=== PATIENT | male | born 1980 | race Caucasian/White ===

== ENCOUNTER 2016-08-23 11:13 | Emergency (ER) | payer BC ==
--- NOTE | 2016-08-23 12:09 | Emergency Department Record ---
History of Present Illness - General Chief Complaint: Abdominal Pain Stated Complaint: ABD DISCOMFORT/BLOOD IN STOOL Time Seen by Provider: 08/23/16 12:08 Source: Patient Mode of Arrival: Ambulatory Limitations: No limitations - History of Present Illness Initial Comments: The patient is here due to a 2 day hx of sharp lower abdominal pain. The onset was after twisting at work and feeling a possible pulled muscle in his lower abdomen. The pain does return with certain movements and bending. Today the patient had a BM and possibly had some bright red blood in the bowl. Due to that he decided to come to the ER. He denies any dysuria, nausea, vomiting, fever, or diarrhea. His appetite has been normal and he denies any hx of similar issues. MD Complaint: Abdominal pain Onset/Timin -: Days(s) Location: Suprapubic Radiation: None Migration to: No migration Severity: Mild Consistency: Constant Improves With: Nothing Associated Symptoms: Denies other symptoms - Related Data Previous Rx's Medication Instructions Recorded Ciprofloxacin HCl [Cipro] 500 mg PO Q12HR #14 tablet 08/23/16 Metronidazole [Flagyl] 500 mg PO TID #21 tablet 08/23/16 Naproxen [Naprosyn] 500 mg PO BID #14 tablet. 08/23/16 Allergies Allergy/AdvReac Type Severity Reaction Status Date / Time No Known Drug Allergies Allergy Unverified 07/09/16 09:59 Travel Screening - Travel/Exposure Within Last 30 Days Have you traveled within the last 30 days?: No Review of Systems Constitutional: Denies: Chills, Fever Eyes: Denies: Eye discharge ENT: Denies: Congestion Respiratory: Denies: Cough, Dyspnea Past Medical History - SOCIAL HISTORY Smoking Status: Former smoker Alcohol Use: None Drug Use: None - RESPIRATORY Hx Respiratory Disorders: Yes Hx Bronchitis: Yes Hx Pneumonia: Yes - CARDIOVASCULAR Hx Cardio Disorders: No - NEURO Hx Neuro Disorders: Yes Hx Dizziness: Yes - GI Hx GI Disorders: Yes Hx Reflux: Yes - Hx Genitourinary Disorders: No - ENDOCRINE Hx Endocrine Disorders: No Hx Diabetes: No Hx Thyroid Disease: No - MUSCULOSKELETAL Hx Musculoskeletal Disorders: Yes Comment:: Bain Kyphosis and Scoliosis - PSYCH Hx Psych Problems: No - HEMATOLOGY/ONCOLOGY Hx Hematology/Oncology Disorders: No Family Medical History Any Significant Family History?: Yes Hx Diabetes: Father, Grandparents *Diabetes Comment: both paternal grandparents. Maternal grandfather Hx HTN: Brother/Sister Hx Kidney Disease: Brother/Sister Physical Exam - General General Appearance: Alert, Oriented x3, Cooperative, No acute distress - Head Head exam: Atraumatic, Normocephalic, Normal inspection - Eye Eye exam: Normal appearance, PERRL - Neck Neck exam: Normal inspection, Full ROM. negative: Tenderness - Respiratory Respiratory exam: Normal lung sounds bilaterally. negative: Respiratory distress - Cardiovascular Cardiovascular Exam: Regular rate, Normal rhythm, Normal heart sounds - GI/Abdominal GI/Abdominal exam: Soft, Tenderness (There is mild suprapubic tenderness to deep palpation.). negative: Guarding, Pulsatile mass, Rebound, Rigid - Rectal Rectal exam: Heme (-) stool - Extremities Extremities exam: Normal inspection, Full ROM, Normal capillary refill. negative: Tenderness Course Vital Signs 08/23/16 12:03 Temperature 98.0 F Pulse Rate 96 H Respiratory 18 Rate Blood Pressure 153/105 Pulse Ox 96 - Reevaluation(s) Reevaluation #1: The patient is doing very well. I did explain the normal lab and urine results and the CT which demonstrates diverticulitis. We will discharge the patient on 2 different antibiotics and pain medicines and will have him F/U with his PCP this week. 08/23/16 14:10 Reevaluation #2: I did also discuss the possible kidney abnormality seen incidentally on CT and the need for F/U with his PCP. 08/23/16 14:15 Medical Decision Making - Data Complexity MDM Data: Labs Ordered and/or Reviewed, X-Ray Ordered and/or Reviewed - Lab Data Result diagrams: 08/23/16 12:25 08/23/16 12:25 - Radiology Data Radiology results: Report reviewed (CT: Acute Diverticulitis of the sigmoid colon with slight extension to the bladder dome. There is no abscess or perforation.) Disposition Disposition: Discharge Clinical Impression: Diverticulitis large intestine Qualifiers: Diverticulitis bleeding: without bleeding Diverticulitis complication: without perforation or abscess Qualified Code(s): K57.32 - Diverticulitis of large intestine without perforation or abscess without bleeding Instructions: Diverticulitis (ED) Additional Instructions: Please take the Naprosyn for pain along with the Cipro and Flagyl. Please see your PCP this week and discuss the formal CT results. Please return to the ER for any increased pain, any significant rectal bleeding, fever, or vomiting. Prescriptions: Ciprofloxacin HCl [Cipro] 500 mg PO Q12HR #14 tablet Metronidazole [Flagyl] 500 mg PO TID #21 tablet Naproxen [Naprosyn] 500 mg PO BID #14 tablet.dr Forms: Patient Portal Access Time of Disposition: 14:13
[2016-08-23 12:31] LABS: BASO % 0.3 % (0-6); EOS % 0.7 % (0-6); GRAN % 71.8 % (47-80); HEMATOCRIT 45.4 % (42.0-52.0); HEMOGLOBIN 15.5 gm/dl (14.0-18.0); LYMPH % 22.6 % (16-45); MEAN CELL VOLUME 81.9 fl (81-97); MEAN CORPUSCULAR HGB CONC 34.1 g/dl (32-36); MEAN PLATELET VOLUME 9.6 fl (7.4-10.4); MONO % 4.6 % (0-9); PLATELET COUNT 295 K/uL (130-400); RED BLOOD COUNT 5.54 M/uL (4.40-5.70); RED CELL DISTRIBUTION WIDTH 13.3 % (11.5-14.5); WHITE BLOOD COUNT W/O DIFF 9.2 K/uL (4.2-12.2)
[2016-08-23 12:43] LABS: ALBUMIN 4.9 gm/dL (3.5-5.0); ALKALINE PHOSPHATASE 100 U/L (38-126); ALT/SGPT 45 U/L (21-72); ANION GAP 15.8 (7-16); AST/SGOT 21 U/L (17-59); BILIRUBIN,TOTAL 0.74 mg/dL (0.2-1.3); BLOOD UREA NITROGEN 13 mg/dL (9-20); CARBON DIOXIDE 24.2 mmol/L (22-30); CREATININE 0.8 mg/dL (0.66-1.25); EST GLOMERULAR FILTRATION RATE > 60 ml/min; GLUCOSE,RANDOM 101 mg/dL (70-110); LIPASE 43 U/L (23-300)
[2016-08-23 13:58] LABS: URINE APPEARANCE CLEAR; URINE BILIRUBIN NEGATIVE (NEGATIVE); URINE BLOOD NEGATIVE (NEGATIVE); URINE COLOR YELLOW; URINE GLUCOSE (UA) NEGATIVE (NEGATIVE); URINE KETONE NEGATIVE (NEGATIVE); URINE LEUKOCYTE ESTERASE NEGATIVE (NEGATIVE); URINE NITRITE NEGATIVE (NEGATIVE); URINE PROTEIN NEGATIVE (NEGATIVE); URINE UROBILINOGEN 0.2 E.U./dL (0.20 - 1.00)
--- NOTE | 2016-08-28 09:14 | CT SCAN REPORT ---
EXAM: CT OF THE ABDOMEN AND PELVIS WITHOUT CONTRAST HISTORY: ABDOMINAL PAIN FOR THREE DAYS. BLOOD IN STOOL. PAIN WITH URINATION. TECHNIQUE: Routine helical CT examination of the abdomen and pelvis was performed without oral or intravenous contrast administration. Comparison: CT of the abdomen and pelvis without contrast dated 12/10/14. FINDINGS: There is minimal linear scarring versus atelectasis in the posterior left lung base. The visualized lung bases are otherwise clear and there is no pleural or pericardial effusion. The heart is not enlarged. The liver, spleen, pancreas, adrenal glands, and right kidney remain normal in appearance. There is redemonstration of a small mass arising exophytically from the posterolateral mid left kidney measuring 1.3 x 1.1 cm. This has a density of 27 Hounsfield units. This does not meet strict density criterion for a simple cyst. It is, however, not significantly changed. The left kidney is otherwise normal in appearance. The gallbladder is unremarkable and no biliary ductal dilatation is seen. No intraabdominal nor retroperitoneal lymphadenopathy is identified. Post appendectomy changes are present. There is again noted sigmoid diverticulosis. There is focal segmental wall thickening of the sigmoid colon centered around a diverticulum with adjacent fat stranding extending to the bladder dome. This is consistent with acute diverticulitis. No definite abscess nor extraluminal air. Evaluation of the urinary bladder is limited by lack of distention. No new destructive bone lesion is seen. IMPRESSION: 1. ACUTE SIGMOID DIVERTICULITIS WITH INFLAMMATORY CHANGES EXTENDING TO THE BLADDER DOME. NO ABSCESS OR EXTRALUMINAL AIR. 2. POST APPENDECTOMY CHANGE. 3. STABLE MASS ARISING EXOPHYTICALLY FROM THE POSTEROLATERAL MID LEFT KIDNEY. THIS DOES NOT MEET STRICT DENSITY CRITERION FOR A SIMPLE CYST THOUGH A BENIGN CYST IS FAVORED. JOB NUMBER: [id number] [facility]
== END 2016-08-23 14:24 | disposition home or self-care (01) ==
LOC: ER 11:13
DX: K57.32 Diverticulitis of large intestine without perforation or abscess without bleeding (principal)
CPT/HCPCS: 74176; 80048; 80076; 81003; 83690; 85025; 99283; 99284

== ENCOUNTER 2016-11-13 07:33 | Day surgery (SDC) | payer BC ==
[2016-11-13] MEDS ORDERED: PROPOFOL 10 MG/ML VIAL IV ONE (14:00)
[2016-11-13] MEDS ORDERED: LIDOCAINE 2% MDV (20MG/ML) 20ML VIAL IV ONE (14:00)
[2016-11-13] MEDS ORDERED: MIDAZOLAM HCL 2MG/2ML VIAL IV ONE (14:00)
--- NOTE | 2016-11-14 17:08 | Operative Note ---
DATE OF SURGERY: 11/13/2016 OPERATION: COLONOSCOPY. PREOPERATIVE DIAGNOSIS: Diverticulitis. POSTOPERATIVE DIAGNOSIS: Mild sigmoid diverticulosis, otherwise normal colon, normal terminal ileum. PROCEDURE: After informed consent was obtained from the patient, he was placed in the left lateral decubitus position in the endoscopy suite, sedated and monitored by the department of anesthesia. Digital rectal exam was unremarkable. A well-lubricated [id number] colonoscope was inserted into the rectum and advanced to the cecum. Preparation quality was good to excellent. The cecum, ileocecal valve, appendiceal orifice, terminal ileum, ascending colon, transverse colon, and descending colon were free of inflammatory changes, mass lesions, or polyps. The sigmoid colon demonstrated very mild diverticular changes. There was no inflammation, polyps, or mass lesions seen. The rectum was unremarkable in forward and in J-turn views. The endoscope was straightened, the rectal ampulla deflated, and the endoscope was removed. RECOMMENDATIONS: The patient should follow a high-fiber diet and use a fiber supplement such as Citrucel or Benefiber. I would recommend a repeat exam at age 52 or sooner should symptoms warrant. As always, thank you for allowing me to participate in the healthcare of your patients. CC: DENISE Moses
== END 2016-11-13 09:16 | disposition home or self-care (01) ==
LOC: HOP 07:33
PROVIDERS: ATTEND Internal Medicine Gastroenterology
DX: K57.30 Diverticulosis of large intestine without perforation or abscess without bleeding (principal)

== ENCOUNTER 2016-12-29 08:59 | Emergency (ER) | payer BC ==
--- NOTE | 2016-12-29 09:44 | Emergency Department Record ---
History of Present Illness - General Chief complaint: Cold Stated complaint: SINUS ISSUES Time Seen by Provider: 12/29/16 09:30 Source: Patient Mode of Arrival: Ambulatory Limitations: No limitations - History of Present Illness Initial comments: 36 yo male presents with 2 weeks of congestions, and discolored nasal drainage. No fevers. He has some pressure in the face and post nasal drip. No significant cough. No shortness of breath. No NVD. MD complaint: Other (Sinus congestion and drainage) Onset/Timin -: Week(s) Location: Nose Consistency: Constant Improves with: None Worsens with: None - Related Data Previous Rx's Medication Instructions Recorded Amoxicillin 500Mg Capsule [Amoxil] 500 mg PO TID #30 tab 12/29/16 Fluticasone Propionate [Flonase] 2 spray EACH NARES DAILY #1 bottle 12/29/16 Allergies Allergy/AdvReac Type Severity Reaction Status Date / Time No Known Drug Allergies Allergy Verified 12/29/16 09:25 Travel Screening - Travel/Exposure Within Last 30 Days Have you traveled within the last 30 days?: No - Travel/Exposure Within Last Year Have you traveled outside the [place] in the last year?: No - Additonal Travel Details Have you been exposed to anyone with a communicable illness?: No - Travel Symptoms Symptom Screening: None Review of Systems Constitutional: Denies: Chills, Fever, Weakness Eyes: Denies: Eye discharge, Eye pain, Photophobia, Vision change ENT: Reports: Congestion, Throat pain. Denies: Dental pain, Ear pain, Epistaxis Respiratory: Denies: Cough, Dyspnea, Hemoptysis, Stridor, Wheezes Cardiovascular: Denies: Chest pain, Palpitations, Syncope Endocrine: Denies: Fatigue, Polydipsia, Polyuria Gastrointestinal: Denies: Abdominal pain, Diarrhea, Nausea, Vomiting Genitourinary: Denies: Dysuria, Frequency, Hematuria Musculoskeletal: Denies: Arthralgia, Back pain, Myalgia Skin: Denies: Bruising, Change in color, Rash Neurological: Denies: Headache, Vertigo Psychiatric: Denies: Anxiety Hematological/Lymphatic: Denies: Blood Clots, Easy bleeding, Easy bruising, Swollen glands Past Medical History - SOCIAL HISTORY Smoking Status: Current every day smoker Alcohol Use: Occassional Drug Use: None - RESPIRATORY Hx Respiratory Disorders: Yes Hx Bronchitis: Yes Hx Pneumonia: Yes - CARDIOVASCULAR Hx Cardio Disorders: No - NEURO Hx Neuro Disorders: Yes Hx Dizziness: Yes - GI Hx GI Disorders: Yes Hx Diverticulitis: Yes Hx Reflux: Yes - Hx Genitourinary Disorders: No - ENDOCRINE Hx Endocrine Disorders: No Hx Diabetes: No Hx Thyroid Disease: No - MUSCULOSKELETAL Hx Musculoskeletal Disorders: Yes Comment:: Odell Kyphosis and Scoliosis - PSYCH Hx Psych Problems: No - HEMATOLOGY/ONCOLOGY Hx Hematology/Oncology Disorders: No Family Medical History Any Significant Family History?: No Hx Diabetes: Father, Grandparents *Diabetes Comment: both paternal grandparents. Maternal grandfather Hx HTN: Brother/Sister Hx Kidney Disease: Brother/Sister Physical Exam - General General Appearance: Alert, Oriented x3, Cooperative, No acute distress Limitations: No limitations - Head Head exam: Normal inspection - Eye Eye exam: Normal appearance, PERRL, Periorbital tenderness. negative: Conjunctival injection, Periorbital swelling - ENT ENT exam: Mucous membranes dry, Mucous membranes moist, Normal external ear exam , TM's normal bilaterally, Other (nasal mucosal edema). negative: Normal exam, Normal orophraynx (mild erythema, no pus) Ear exam: Normal external inspection. negative: External canal tenderness Nasal Exam: Discharge, Sinus tenderness. negative: Normal inspection, Active bleeding, Dried blood Mouth exam: Normal external inspection, Tongue normal Teeth exam: Normal inspection. negative: Dental caries Throat exam: Normal inspection. negative: Tonsillar erythema, Tonsillar exudate - Neck Neck exam: Normal inspection, Full ROM. negative: Lymphadenopathy, Tenderness - Respiratory Respiratory exam: Normal lung sounds bilaterally. negative: Respiratory distress - Cardiovascular Cardiovascular Exam: Regular rate, Normal rhythm, Normal heart sounds - GI/Abdominal GI/Abdominal exam: Soft. negative: Tenderness - Rectal Rectal exam: Deferred - exam: Deferred - Extremities Extremities exam: Normal inspection, Full ROM, Normal capillary refill. negative: Tenderness - Back Back exam: Reports: Normal inspection, Full ROM. Denies: Muscle spasm, Rash noted, Tenderness - Neurological Neurological exam: Alert, Normal gait, Oriented X3 - Psychiatric Psychiatric exam: Normal affect, Normal mood. negative: Agitated, Anxious - Skin Skin exam: Dry, Intact, Normal color, Warm Course Vital Signs 12/29/16 09:21 Temperature 97.5 F L Pulse Rate 95 H Respiratory 16 Rate Blood Pressure 131/89 Pulse Ox 98 - Reevaluation(s) Reevaluation #1: signs and symptoms consistent with sinusitis with possible allergic reaction 12/29/16 09:42 Disposition Disposition: Discharge Clinical Impression: Sinusitis Qualifiers: Sinusitis location: unspecified location Chronicity: acute Recurrence: non- recurrent Qualified Code(s): J01.90 - Acute sinusitis, unspecified Disposition: Home, Self-Care Condition: (1) Good Instructions: Sinusitis (ED) Additional Instructions: Rest and stay well hydrated 'Return if worse, fever, nausea , vomiting or shortness of breath. Prescriptions: Amoxicillin 500Mg Capsule [Amoxil] 500 mg PO TID #30 tab Fluticasone Propionate [Flonase] 2 spray EACH NARES DAILY #1 bottle Forms: Patient Portal Access Time of Disposition: 09:44
== END 2016-12-29 09:58 | disposition home or self-care (01) ==
LOC: ER 08:59
DX: J01.90 Acute sinusitis, unspecified (principal); R51 Headache
CPT/HCPCS: 99282

== ENCOUNTER 2017-08-01 16:37 | Emergency (ER) | payer BC ==
[2017-08-01] MEDS ORDERED: PREDNISONE 20 MG TAB PO ONE (17:35)
[2017-08-01] MEDS ORDERED: DIPHENHYDRAMINE HCL 25 MG CAPSULE PO ONE (17:35)
--- NOTE | 2017-08-01 17:36 | Emergency Department Record ---
History of Present Illness - General Chief complaint: Allergic Reaction Stated complaint: REACTION TO MEDS Time Seen by Provider: 08/01/17 17:28 Source: Patient, RN notes reviewed Mode of Arrival: Ambulatory - History of Present Illness Initial Comments: on augmentin 2 two days and developed a rash on his arms. his eyes look good and no posterior nasal drainage and throat is good. Onset/Timin -: Days(s) Exposure: Medication Symptoms: Rash Severity: Mild Previous Allergy History: None - Related Data Previous Rx's Medication Instructions Recorded Prednisone [Prednisone 10Mg] 10 mg PO ASDIR #30 tab 08/01/17 Allergies Allergy/AdvReac Type Severity Reaction Status Date / Time amoxicillin [From Augmentin] Allergy RASH Verified 08/01/17 16:58 clavulanic acid Allergy RASH Verified 08/01/17 16:58 [From Augmentin] Travel Screening - Travel/Exposure Within Last 30 Days Have you traveled within the last 30 days?: No - Travel/Exposure Within Last Year Have you traveled outside the [place] in the last year?: No - Additonal Travel Details Have you been exposed to anyone with a communicable illness?: No - Travel Symptoms Symptom Screening: None Review of Systems Reviewed: No additional complaints except as noted below Constitutional: Reports: As per HPI. Denies: Chills, Fever, Malaise, Night sweats, Weakness, Weight change Eyes: Reports: As per HPI. Denies: Eye discharge, Eye pain, Photophobia, Vision change ENT: Reports: As per HPI. Denies: Congestion, Dental pain, Ear pain, Epistaxis , Hearing loss, Throat pain Respiratory: Reports: As per HPI. Denies: Cough, Dyspnea, Hemoptysis, Stridor, Wheezes Cardiovascular: Reports: As per HPI. Denies: Arrhythmia, Chest pain, Dyspnea on exertion, Edema, Murmurs, Orthopnea, Palpitations, Paroxysmal nocturnal dyspnea, Rheumatic Fever, Syncope Endocrine: Reports: As per HPI. Denies: Fatigue, Heat or cold intolerance, Polydipsia, Polyuria Gastrointestinal: Reports: As per HPI. Denies: Abdominal pain, Constipation, Diarrhea, Hematemesis, Hematochezia, Melena, Nausea, Vomiting Genitourinary: Reports: As per HPI. Denies: Dysuria, Frequency, Hematuria, Incontinence, Retention, Testicular pain, Testicular mass, Urgency Musculoskeletal: Reports: As per HPI. Denies: Arthralgia, Back pain, Gout, Joint swelling, Myalgia, Neck pain Skin: Reports: As per HPI, Rash. Denies: Bruising, Change in color, Change in hair/nails, Lesions, Pruritus Neurological: Reports: As per HPI. Denies: Abnormal gait, Confusion, Headache, Numbness, Paresthesias, Seizure, Tingling, Tremors, Vertigo, Weakness Psychiatric: Reports: As per HPI. Denies: Anxiety, Auditory hallucinations, Depression, Homicidal thoughts, Suicidal thoughts, Visual hallucinations Hematological/Lymphatic: Reports: As per HPI. Denies: Anemia, Blood Clots, Easy bleeding, Easy bruising, Swollen glands Past Medical History - SOCIAL HISTORY Smoking Status: Current every day smoker Alcohol Use: None Drug Use: None - RESPIRATORY Hx Respiratory Disorders: Yes Hx Bronchitis: Yes Hx Pneumonia: Yes - CARDIOVASCULAR Hx Cardio Disorders: No - NEURO Hx Neuro Disorders: Yes Hx Dizziness: Yes - GI Hx GI Disorders: Yes Hx Diverticulitis: Yes Hx Reflux: Yes - Hx Genitourinary Disorders: No - ENDOCRINE Hx Endocrine Disorders: No Hx Diabetes: No Hx Thyroid Disease: No - MUSCULOSKELETAL Hx Musculoskeletal Disorders: Yes Comment:: Bain Kyphosis and Scoliosis - PSYCH Hx Psych Problems: No - HEMATOLOGY/ONCOLOGY Hx Hematology/Oncology Disorders: No Family Medical History Any Significant Family History?: Yes Hx Diabetes: Father, Grandparents *Diabetes Comment: both paternal grandparents. Maternal grandfather Hx HTN: Brother/Sister Hx Kidney Disease: Brother/Sister Physical Exam - General General Appearance: Alert, Oriented x3, Cooperative, No acute distress - Head Head exam: Normal inspection - Eye Eye exam: Normal appearance, PERRL Pupils: Normal accommodation - ENT ENT exam: Normal exam, Mucous membranes moist, Normal external ear exam, Normal orophraynx, TM's normal bilaterally Ear exam: Normal external inspection. negative: External canal tenderness Nasal Exam: Normal inspection. negative: Discharge, Sinus tenderness Mouth exam: Normal external inspection, Tongue normal Teeth exam: Normal inspection. negative: Dental caries Throat exam: Normal inspection. negative: Tonsillar erythema, Tonsillar exudate - Neck Neck exam: Normal inspection, Full ROM. negative: Tenderness - Respiratory Respiratory exam: Normal lung sounds bilaterally. negative: Respiratory distress - Cardiovascular Cardiovascular Exam: Regular rate, Normal rhythm, Normal heart sounds - GI/Abdominal GI/Abdominal exam: Soft, Normal bowel sounds. negative: Tenderness - Rectal Rectal exam: Deferred - exam: Deferred - Extremities Extremities exam: Normal inspection, Full ROM, Normal capillary refill. negative: Tenderness - Back Back exam: Reports: Normal inspection, Full ROM. Denies: Muscle spasm, Rash noted, Tenderness - Neurological Neurological exam: Alert, Normal gait, Oriented X3, Reflexes normal - Psychiatric Psychiatric exam: Normal affect, Normal mood - Skin Skin exam: Dry, Intact, Normal color, Rash, Warm Course Vital Signs 08/01/17 16:54 Temperature 98.1 F Pulse Rate 95 H Respiratory 20 Rate Blood Pressure 146/95 Pulse Ox 100 Disposition Clinical Impression: Allergic reaction to penicillin Qualifiers: Encounter type: initial encounter Qualified Code(s): T36.0X5A - Adverse effect of penicillins, initial encounter Instructions: Allergies (ED), Anaphylaxis (ED) Additional Instructions: stop augmentin and no penicillin benadryl 25 to 50 mg every 8 hours Prescriptions: Prednisone [Prednisone 10Mg] 10 mg PO ASDIR #30 tab Forms: Patient Portal Access Time of Disposition: 17:40 Quality - Quality Measures Quality Measures: N/A - Blood Pressure Screening Does Patient Have Any of the Following: No Blood Pressure Classification: Hypertensive Reading Systolic Measurement: 146 Diastolic Measurement: 95 Screening for High Blood Pressure: < First Hypertensive BP, F/U Documented > [ [id number]] First Hypertensive Follow-up Interventions: Referral to alternative/primary care provider.
== END 2017-08-01 17:53 | disposition home or self-care (01) ==
LOC: ER 16:37
DX: T36.0X5A Adverse effect of penicillins, initial encounter (principal); F17.210 Nicotine dependence, cigarettes, uncomplicated
CPT/HCPCS: 99282; J7512